=== PATIENT | female | born 1955 | race Caucasian/White ===

== ENCOUNTER 2022-06-28 19:01 | Emergency (ER) | payer OTHER ==
[~2022-06-28] VITALS: Ht 158.1 cm; Wt 126.6 kg
[2022-06-28 19:10] VITALS: BP_SYST 131
--- NOTE | 2022-06-28 19:10 | NUR ---
Triaged patient and placed back in the waiting room. Vital signs updated, denied any acute distress at this time. Instructed to notify ED staff for any changes in condition or worsening of symptoms. Patient verbalized understanding.
--- NOTE | 2022-06-28 19:59 | NUR ---
Patient placed in triage room for evaluation.
--- NOTE | 2022-06-28 20:00 | NUR ---
Dr. Schuster in triage room examining the patient.
[2022-06-28 20:09] LABS: BILIRUBIN,URINE NEGATIVE (NEGATIVE); BLOOD, URINE 3+ (NEGATIVE); CLARITY/URINE SL CLOUDY (CLEAR); COLOR,URINE YELLOW (YELLOW); GLUCOSE,URINE NEGATIVE (NEGATIVE); KETONES,URINE NEGATIVE (NEGATIVE); LEUKOCYTE ESTERASE ,URINE 3+ (NEGATIVE); NITRITE, URINE NEGATIVE (NEGATIVE); PH,URINE 5.5 (5.0-8.0); PROTEIN URINE NEGATIVE (NEGATIVE); UROBILINOGEN,URINE 0.2 (0.2-1.0)
[2022-06-28] MEDS ORDERED: PHEN-726 PO (20:25)
[2022-06-28] MEDS ORDERED: CEPH-548 PO (20:25)
[2022-06-28] MEDS ORDERED: cephALEXin 500 MG CAPSULE PO ONE (20:30)
[2022-06-28 20:32] LABS: BACTERIA,URINE RARE /HPF (None Seen); MUCUS,URINE 1+ /LPF (None Seen); OTHER CASTS, URINE WBC CASTS 1+ /LPF (None Seen); WBC,URINE 80-100 /HPF (0-3)
--- NOTE | 2022-06-28 20:53 | NUR ---
Patient given written and verbal discharge instructions and verbalizes understanding. ER MD discussed with patient the results and treatment provided. Patient in stable condition. ID arm band removed. Rx of cephalexin and pyridium given. Patient educated on pain management and to follow up with PMD. Pain Scale 0/10. Opportunity for questions provided and answered. Medication side effect fact sheet provided.
[2022-06-28 20:55] VITALS: BP_SYST 142
== END 2022-06-28 20:55 | disposition home or self-care (01) ==
LOC: SED 19:01
DX: N30.01 Acute cystitis with hematuria (principal); R30.0 Dysuria; Z79.899 Other long term (current) drug therapy
CPT/HCPCS: 81000; 87086; 99283